=== PATIENT | female | born 1990 | race Caucasian/White ===

== ENCOUNTER 2020-07-27 16:39 | Emergency (ER) | payer OTHER, SELFPAY ==
[2020-07-27 17:03] VITALS: BP 149/93; PULSE 78; RESP 21; TEMP 36.6; O2SAT 98; BMI 39.9
--- NOTE | 2020-07-27 17:08 | HMH.EDUTC ---
[facility] [place] Clinical Impression: Bronchitis Sinusitis Qualifiers: Sinusitis location: unspecified location Chronicity: unspecified Qualified Code(s): J32.9 - Chronic sinusitis, unspecified Disposition: Home, Self-Care Condition on Discharge: Good Instructions: Sore Throat, Acute Bronchitis, DI for Cough -- Adult, Preventing the Spread of Coronavirus Discharge Instructions Additional Instructions: *Monitor Temp, Over the counter Motrin or Tylenol as directed/as needed Tylenol every 4 hours and Motrin every 6 hours (as long as your family doctor has told you that you can take it) for fever or pain. and straight to ER if unable to lower temp less than 101.0 after medication given *Warm salt water gargles may help to soothe the throat *Throat Lozenges *Warm fluids like tea with honey may help to soothe the throat *Sleep elevated *Humidifier/Vaporizer *Flonase 2 sprays in each nostril daily but be aware that it may take 2-3 days before you notice improvement Your throat swab was sent for culture. Those results are typically sent to your primary care. Be sure to follow up in 2-3 days with your family doctor/primary care physician if no improvement so they can review those result and treat if necessary. If you don?t have a primary care doctor, I recommend you get one but in the mean time, you will have to return to a walk in clinic Follow up IMMEDIATELY for new or worsening symptoms or no Noticeable improvement over the next 48-72 hours. 911 for difficulty breathing or swallowing You was tested for today for COVID19 your test result should be back later this evening, you may call back later this evening to see if your test results are back and the result You was given a handout with instructions for Self Quarantine and Self isolation for while you wait on test results and what to do if they are positive Prescriptions: Albuterol Sulfate [Proventil-HFA 90mcg/puff Inh] 1 - 2 puffs IH Q4HP PRN #1 inh PRN Reason: Shortness Of Breath Transmission Status: Pending to [id number] Fluticasone Propionate [Flonase 50mcg nasal spray 16gm] 1 spr NS DAILY #1 bottle Transmission Status: Pending to [id number] methylPREDNISolone [Medrol 4mg tab] 4 mg PO DIRECTED #21 tab Transmission Status: Pending to [id number] Benzonatate [Tessalon Perle 100mg Cap*] 100 mg PO TID PRN #30 cap PRN Reason: Cough Transmission Status: Pending to [id number] Azithromycin [Z-Lance 250mg Tab] 250 mg PO DIRECTED #6 tab Transmission Status: Pending to [id number] Referrals: Kevin Dominguez PA [Primary Care Provider] - As needed Forms: Work/School Release Time of Disposition: 17:53 Medical Decision Making - Sharath Inquiry Pt receiving controlled substance: No Sharath was queried for this patient: No Vital Signs: 07/27/20 17:03 Temperature 97.9 F Temperature Source Oral Pulse Rate [Radial] 78 Respiratory Rate 21 Blood Pressure [Right Arm] 149/93 H Blood Pressure Mean [Right Arm] 111 Blood Pressure Source [Right Arm] Automatic Cuff Blood Pressure Position [Right Arm] Sitting 02 Sat by Pulse Oximetry 98 Oxygen Delivery Method Room Air - Lab Data Lab results reviewed: Yes: I reviewed the patient's lab results. Orders (Tests/Meds): ORDERS Category Date Time Status Covid-19 Nasal PCR ([facility]) Routine Lab 07/27/20 17:13 Received [facility] [place]PI - General Stated complaint: Cough, sore throat, achy,headache Time Seen by Provider: 07/27/20 17:08 Mode of Arrival: Ambulatory Source of Information: Patient Limitations: No Limitations Description of Symptoms (Recalled from Triage Doc. by RN): cough, headache, chest congestion x 3 days HEENT Symptoms (Recalled from RN notes): Yes Resp Symptoms (Recalled from RN notes): No Skin Symptoms (Recalled from RN notes): No MS Symptoms (Recalled from RN notes): No Functional Status (Recalled from RN notes): wnl - History of Present Illness Provider
[2020-07-27 18:14] VITALS: BP 149/93; PULSE 78; RESP 21; TEMP 36.6; O2SAT 98
[2020-07-27 19:02] LABS: UTC Strep Screen (Rapid) Negative (Negative)
== END 2020-07-27 18:15 | disposition home or self-care (01) ==
PROVIDERS: Emergency Provider Nurse Practitioner; PCP Physician Assistant
DX: Z20.828 Contact with and (suspected) exposure to other viral communicable diseases (principal); J20.9 Acute bronchitis, unspecified; J32.9 Chronic sinusitis, unspecified; F17.210 Nicotine dependence, cigarettes, uncomplicated
CPT/HCPCS: 87880; 99202; U0003

== ENCOUNTER 2020-09-20 12:59 | Emergency (ER) | payer OTHER, SELFPAY ==
[2020-09-20 13:10] VITALS: BP 141/84; PULSE 118; RESP 17; TEMP 37; O2SAT 95; BMI 38.4
--- NOTE | 2020-09-20 13:17 | HMH.EDUTC ---
[facility] – [place] Disposition Clinical Impression: Close exposure to COVID-19 virus URI (upper respiratory infection) Qualifiers: URI type: unspecified URI Qualified Code(s): J06.9 - Acute upper respiratory infection, unspecified Disposition: Home, Self-Care Condition on Discharge: Good Instructions: Sinusitis, DI for Sinusitis, DI for COVID-19 (Suspected or Confirmed ), COVID-19: Testing and Tracing, Preventing the Spread of Coronavirus Discharge Instructions Additional Instructions: *Monitor Temp, Over the counter Motrin or Tylenol as directed/as needed Tylenol every 4 hours and Motrin every 6 hours (as long as your family doctor has told you that you can take it) for fever or pain. and straight to ER if unable to lower temp less than 101.0 after medication given *Warm salt water gargles may help to soothe the throat *Throat Lozenges *Warm fluids like tea with honey may help to soothe the throat *Sleep elevated *Humidifier/Vaporizer Follow up IMMEDIATELY for new or worsening symptoms or no Noticeable improvement over the next 48-72 hours. 911 for difficulty breathing or swallowing You were tested for today for COVID19 your test result should be back in the next 24-48 hours, you may call to the [facility] to see if your test results are back in the next 48 hours [phone] [facility] hours are 9am-9pm You was given a handout with instructions for Self Quarantine and Self isolation for while you wait on test results and what to do if they are positive If you are positive the Health Dept will be contacting you also Prescriptions: Azithromycin [Z-Lance 250mg Tab] 250 mg PO DIRECTED #6 tab Transmission Status: Pending to [facility]/pharmacy #[id number] Referrals: PCP,No [Primary Care Provider] - As needed Forms: Work/School Release Time of Disposition: 13:22 Medical Decision Making - Sharath Inquiry Pt receiving controlled substance: No Sharath was queried for this patient: No Vital Signs: 09/20/20 13:10 Temperature 98.6 F Temperature Source Oral Pulse Rate [Radial] 118 H Respiratory Rate 17 Blood Pressure [Right Arm] 141/84 H Blood Pressure Mean [Right Arm] 103 Blood Pressure Source [Right Arm] Automatic Cuff Blood Pressure Position [Right Arm] Sitting 02 Sat by Pulse Oximetry 95 Oxygen Delivery Method Room Air - Lab Data Lab results reviewed: Yes: I reviewed the patient's lab results. Orders (Tests/Meds): ORDERS Category Date Time Status Covid-19 Nasal PCR ([facility]) Routine Lab 09/20/20 13:08 Received [facility] – [place] HPI - General Stated complaint: fever,body pain Time Seen by Provider: 09/20/20 13:17 Mode of Arrival: Ambulatory Source of Information: Patient Limitations: No Limitations Description of Symptoms (Recalled from Triage Doc. by RN): day 3 of fever and achy HEENT Symptoms (Recalled from RN notes): Yes Resp Symptoms (Recalled from RN notes): No Skin Symptoms (Recalled from RN notes): No MS Symptoms (Recalled from RN notes): No Functional Status (Recalled from RN notes): wnl - History of Present Illness Provider Complaint: Patient states that she has been having sinus pain and congestion, ears feeling full and pressure along with body aches and fever States that her daughter recently tested positive for COVID and she wanted to get tested for flu and COVID States that she has continued to feel worse over the last 3 days - Related Data Previous Rx's Medication Instructions Recorded Albuterol Sulfate [Proventil-HFA 1 - 2 puffs IH Q4HP PRN #1 inh 07/27/20 90mcg/puff Inh] Azithromycin [Z-Lance 250mg Tab] 250 mg PO DIRECTED #6 tab 07/27/20 Benzonatate [Tessalon Perle 100mg 100 mg PO TID PRN #30 cap 07/27/20 Cap*] Fluticasone Propionate [Flonase 1 spr NS DAILY #1 bottle 07/27/20 50mcg nasal spray 16gm] methylPREDNISolone [Medrol 4mg 4 mg PO DIRECTED #21 tab 07/27/20 tab] Azithromycin [Z-Lance 250mg Tab] 250 mg PO DIRECTED #6 tab 09/20/20 Allergies Allergy/AdvReac Type Severity Reactio
[2020-09-20 13:30] LABS: UTC Influenza A Antigen Negative (Negative); UTC Influenza B Antigen Negative (Negative)
[2020-09-20 13:47] VITALS: BP 141/84; PULSE 118; RESP 17; TEMP 37; O2SAT 95
== END 2020-09-20 13:48 | disposition home or self-care (01) ==
PROVIDERS: Emergency Provider Nurse Practitioner
DX: Z20.828 Contact with and (suspected) exposure to other viral communicable diseases (principal); J06.9 Acute upper respiratory infection, unspecified; F17.210 Nicotine dependence, cigarettes, uncomplicated
CPT/HCPCS: 87804; 99201; U0003